=== PATIENT | male | born 1995 | race African-American/Black ===

== ENCOUNTER 2019-06-04 14:05 | Emergency (ER) | payer SELFPAY ==
[~2019-06-04] VITALS: Ht 170.2 cm; Wt 65.8 kg
[2019-06-04 14:05] VITALS: BP_SYST 181
--- NOTE | 2019-06-04 14:05 | NUR ---
PT BROUGHT IN BY [facility] PLACED IN BED #1 AND TRIAGED. REPORT GIVEN TO EMMANUELLE
--- NOTE | 2019-06-04 14:06 | NUR ---
DR TAPIA AT BEDSIDE UPON ARRIVAL TO ER.
--- NOTE | 2019-06-04 14:10 | NUR ---
Patient presented to ER C/O agitation. Patient A&Ox4, afebrile, BIB ACLS, skin pink & warm, pain 2/10, denies N/V/D. ACLS medic states Patient was combative and spitting. Medic place mask on pt and placed PIV left arm enroute and give versed. 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
--- NOTE | 2019-06-04 14:15 | NUR ---
Irina jean in [facility] - 06/04/19 at 1504 by SDEDTD Report given to Be STEWART
--- NOTE | 2019-06-04 14:40 | NUR ---
Report to Be DAMIAN
--- NOTE | 2019-06-04 14:41 | NUR ---
RECEIVED REPORT, PT ANXIOUS AND PARANOID. COMMUNICATES WITH QUICK RESPONSES IN FULL COMPLETE SENTENCES, SKIN WARM AND DRY. HE REFUSES TO ANSWER SIMPLE QUESTION AND IS SUSPICIOUS OF STAFF. NSR ON MONITOR AT 92, RESP UNABORED. DENIES PAIN, NO MEDICAL COMPLAINTS. HE STATED THAT THE INJECTION HE RECEIVED IN THE FIELD HELP HIS ANXIETY AND HE IS "CHILL."
[2019-06-04 14:46] VITALS: BP_SYST 151
--- NOTE | 2019-06-04 15:28 | NUR ---
MD TO BEDSIDE TO ASSESS. LABS OBTAINED AND SENT TO LAB, PT PARANOID, FEARFUL OF STAFF AND DEMANDED TO HAVE ALL MONITORING LEADS REMOVED. MD AWARE.
[2019-06-04 15:50] LABS: BASOPHILS # (AUTO) 0.1 K/uL (0.0-0.2); BASOPHILS % (AUTO) 0.8 % (0.0-2.0); HEMATOCRIT 43.8 % (36-54); HEMOGLOBIN 14.4 g/dL (14.0-18.0); LYMPHOCYTES # (AUTO) 1.1 K/uL (1.0-5.5); LYMPHOCYTES % (AUTO) 14.8 % (20.5-51.5); MEAN CORPUSCULAR HEMOGLOBIN 28 pg (27-31); MEAN CORPUSCULAR HGB CONC 33 % (32-36); MEAN CORPUSCULAR VOLUME 84 fL (79.0-98.0); MONOCYTES # (AUTO) 0.4 K/uL (0.0-1.0); MONOCYTES % (AUTO) 5.9 % (1.7-9.3); NEUTROPHILS # (AUTO) 5.9 K/uL (1.8-7.7); NEUTROPHILS % (AUTO) 78.5 % (40.0-70.0); PLATELET COUNT (AUTO) 172 K/uL (130-430); RED BLOOD CELL COUNT(AUTO) 5.23 MIL/uL (4.2-6.2); RED CELL DISTRIBUTION WIDTH 14.3 % (9.0-15.0); WHITE BLOOD COUNT (AUTO) 7.5 K/uL (4.8-10.8)
--- NOTE | 2019-06-04 15:59 | NUR ---
Pt resting at this time , no s/s of distress
[2019-06-04 16:00] LABS: ANION GAP 11 (5-15); CALCIUM 9.2 mg/dL (8.4-11.0); CHLORIDE 102 mmol/L (98-107); CREATININE 0.83 mg/dL (0.55-1.30); GLUCOSE 79 mg/dL (70-99); POTASSIUM 3.9 mmol/L (3.5-5.1); SODIUM SERUM 140 mmol/L (136-145); UREA NITROGEN, BLOOD 12 mg/dL (8-21)
[2019-06-04 16:06] LABS: ALANINE AMINOTRANSFERASE 22 U/L (12-78); ALBUMIN 4.8 g/dL (3.4-4.8); ASPARTATE AMINOTRANSFERASE 21 U/L (10-37); TOTAL BILIRUBIN 1.1 mg/dL (0.0-1.0)
[2019-06-04 16:07] LABS: GFR AFRICAN AMERICAN 149 mL/min (>90)
[2019-06-04 16:08] LABS: ACETAMINOPHEN < 1 ug/mL (1-30); ALCOHOL, BLOOD < 3 mg/dL (<10)
--- NOTE | 2019-06-04 17:59 | NUR ---
Patient given written and verbal discharge instructions and verbalizes understanding. ER MD discussed with patient the results and treatment provided. Patient in stable condition. ID arm band removed. No Rx given. Patient educated on pain management and to follow up with PMD. Pain Scale 0/10 . Opportunity for questions provided and answered. Medication side effect fact sheet provided.
== END 2019-06-04 17:59 | disposition home or self-care (01) ==
LOC: EDBD 14:05 → SED 14:05
DX: F19.10 Other psychoactive substance abuse, uncomplicated (principal); F31.9 Bipolar disorder, unspecified; F41.9 Anxiety disorder, unspecified
CPT/HCPCS: 36415; 80053; 85025; 99283; G0480; G0481; G0482